=== PATIENT | female | born 1935 | race Caucasian/White ===

== ENCOUNTER 2020-04-08 10:13 | Inpatient (IN) | payer MEDICARE, OTHER ==
[~2020-04-08] VITALS: Ht 152.4 cm; Wt 55.3 kg
--- NOTE | 2020-04-08 10:13 | NUR ---
PT TAVO FROM HOME C/O GEN WEAKNESS "SHE'S NOT EATING ENOUGH" PT IS AAOX2 ESTONIAN SPEAKING ONLY, NOT IN RESPIRATORY DISTRESS, HOOKED TO LOAD DISPATCHER LOCAL, KEPT RESTED AND COMFORTABLE. WILL CONTINUE TO MONITOR.
--- NOTE | 2020-04-08 10:17 | NUR ---
SEEN AND EXAMINED BY .
--- NOTE | 2020-04-08 10:20 | NUR ---
IV LINE ESTABLISHED BLOOD DRAWN AND SENT TO LAB.
--- NOTE | 2020-04-08 10:36 | NUR ---
Judie haskins in [facility] - 04/08/20 at 1042 by MIRLANDE Christopher delgado) [phone] Krissy Suárez (daughter) [phone]
[2020-04-08 10:38] LABS: BASOPHILS # (AUTO) 0.1 /CMM (0.0-0.2); BASOPHILS % (AUTO) 1.3 % (0.0-2.0); HEMATOCRIT 38 % (33-45); HEMOGLOBIN 12.8 g/dL (11.5-14.8); LYMPHOCYTES # (AUTO) 1.3 /CMM (0.8-4.8); LYMPHOCYTES % (AUTO) 13.2 % (20.0-44.0); MEAN CORPUSCULAR HGB CONC 34 g/dl (31.0-36.0); MEAN CORPUSCULAR VOLUME 92 fL (82-100); MONOCYTES # (AUTO) 0.6 /CMM (0.1-1.30); MONOCYTES % (AUTO) 5.7 % (2.0-12.0); NEUTROPHILS # (AUTO) 7.7 /CMM (1.8-8.9); NEUTROPHILS % (AUTO) 77.8 % (43.0-81.0); PLATELET COUNT (AUTO) 388 /CMM (150-450); RED BLOOD CELL COUNT(AUTO) 4.12 MIL/uL (4.0-5.2)
[2020-04-08 11:05] LABS: ALANINE AMINOTRANSFERASE 19 U/L (12-78); ALBUMIN 3.3 g/dL (3.4-5.0); ALKALINE PHOSPHATASE 55 U/L (46-116); ASPARTATE AMINOTRANSFERASE 22 U/L (15-37); BILIRUBIN,DIRECT 0.2 mg/dL (0.0-0.2); BILIRUBIN,TOTAL 0.6 mg/dL (0.2-1.0); CARBON DIOXIDE 25 mmol/L (21-32); CHLORIDE 102 mmol/L (98-107); CREATININE 1.3 mg/dL (0.6-1.3); GLUCOSE 120 mg/dL (74-106); POTASSIUM 3.5 mmol/L (3.5-5.1); SODIUM SERUM 138 mmol/L (136-145); TOTAL PROTEIN, SERUM 8.3 g/dL (6.4-8.2)
--- NOTE | 2020-04-08 11:13 | NUR ---
Christopher (son) [phone] Krissy Suárez (daughter) [phone] CALL FOR ANY UPDATES
[2020-04-08 11:20] LABS: UREA NITROGEN, BLOOD 17 mg/dL (7-18)
--- NOTE | 2020-04-08 11:24 | NUR ---
CALLED [facility], PAGED DR. BACK
[2020-04-08] MEDS ORDERED: ONDANSETRON HCL/PF 4 MG/2 ML VIAL IVP PRN (12:00)
[2020-04-08] MEDS ORDERED: MAG HYDROX/AL HYDROX/SIMETH 30 ML UDC PO PRN (12:00)
[2020-04-08] MEDS ORDERED: Z GUARD REMEDY 2 OZ OINT TP PRN (12:00)
[2020-04-08] MEDS ORDERED: MAGNESIUM HYDROXIDE 30 ML UDC PO PRN (12:00)
[2020-04-08] MEDS ORDERED: ACETAMINOPHEN 325 MG TABLET PO PRN (12:00)
[2020-04-08] MEDS ORDERED: METF-867 PO (13:28)
[2020-04-08] MEDS ORDERED: TRAM50TA2 PO (13:28)
[2020-04-08] MEDS ORDERED: VALS40TA12 PO (13:28)
[2020-04-08] MEDS ORDERED: DEXL60CA3 PO (13:28)
[2020-04-08] MEDS: ENOXAPARIN SODIUM 30 MG/0.3 ML DISP.SYRIN SQ SCH (16:01)
[2020-04-08] MEDS ORDERED: ENOXAPARIN SODIUM 30 MG/0.3 ML DISP.SYRIN ONE (16:03)
--- NOTE | 2020-04-08 18:28 | NUR ---
ARIE, SON, CALLED ABOUT PT UPDATE
[2020-04-08] MEDS: IV NS 0.9% 1,000 ML IV PRN (21:45)
--- NOTE | 2020-04-08 22:58 | NUR ---
PT ASLEEP, NO ACUTE DISTRESS NOTED, RESP EVEN AND UNALBORED. NO PAIN OR DISCOMFORT NOTED AT THIS TIME. CALL LIGHT WITHIN REACH. WILL CONTINUE TO MONITOR PT CLOSELY.
--- NOTE | 2020-04-08 23:12 | NUR ---
ELISHA CALLED TO [facility]. WILL TRANSPORT PT VIA ACLS PROTOCOL.
--- NOTE | 2020-04-08 23:30 | NUR ---
ADMIT NOTE ADMITTED PATIENT FROM ER TO ROOM 117-1 VIA GURNEY. PATIENT IS ALERT AND ORIENTED 1-2, WITH CONFUSION. ON O2 2LPM VIA NASAL CANNULA, O2 SAT 96%. NO RESPIRATORY DISTRESS. PUT ON TELE MONITOR, NSR. HEAD TO TOE ASSESSMENT DONE, NOTED WITH SCRATCHES ON LEFT BUTTOCK AND LEFT LOWER QUADRANT ABDOMEN. WITH IV ACCESS ON RIGHT AC #18 PATENT AND FLUSHED. WITH UPPER DENTURES @ BEDSIDE. UPDATED PRIYA (DTR) OF PATIENT'S CONDITION. REQUESTED TO HOLD FLU AND PNA VACCINE AT THE TIME BEING. DTR APPRECIATED CALL. SAFETY MEASURES IMPLEMENTED. BED ALARM ON AND LOCKED AND IN LOWEST POSITION. SIDE RAILS UP X2. CALL LIGHT WITHIN REACH. WILL CONTINUE TO MONITOR.
[2020-04-09] VITALS: BP 134/76
[2020-04-09 04:00] VITALS: BP 130/69
--- NOTE | 2020-04-09 04:27 | NUR ---
PATIENT CONSISTENTLY PULLS LEADS OFF AND NASAL CANNULA. AND ATTEMPTS TO PULL OUT IV ACCESS, DESPITE HIDING LINES, FREQUENT MONITORING, AND CONSTANT REMINDERS. DR. MARTINES MADE AWARE WITH NEW ORDER FOR BILATERAL SOFT WRIST RESTRAINTS NOTED AND CARRIED OUT.
[2020-04-09 06:31] LABS: BASOPHILS % (AUTO) 0.3 % (0.0-2.0); EOSINOPHILS % (AUTO) 2.6 % (0.0-6.0); HEMATOCRIT 37 % (33-45); HEMOGLOBIN 12.3 g/dL (11.5-14.8); LYMPHOCYTES # (AUTO) 1.6 /CMM (0.8-4.8); LYMPHOCYTES % (AUTO) 17.3 % (20.0-44.0); MEAN CORPUSCULAR HGB CONC 33 g/dl (31.0-36.0); MEAN CORPUSCULAR VOLUME 92 fL (82-100); MONOCYTES # (AUTO) 0.6 /CMM (0.1-1.30); MONOCYTES % (AUTO) 6.6 % (2.0-12.0); NEUTROPHILS # (AUTO) 6.9 /CMM (1.8-8.9); NEUTROPHILS % (AUTO) 73.2 % (43.0-81.0); PLATELET COUNT (AUTO) 409 /CMM (150-450); RED BLOOD CELL COUNT(AUTO) 3.98 MIL/uL (4.0-5.2); WHITE BLOOD COUNT (AUTO) 9.5 K/uL (4.3-11.0)
--- NOTE | 2020-04-09 06:48 | NUR ---
RN NOTES PATIENT IS A/O X 1-2, WITH CONFUSION. ON O2 2LPM VIA NASAL CANNULA, O2 SAT 94%. NO RESPIRATORY DISTRESS. TELE MONITOR ON, NSR. IV ACCESS ON RIGHT HAND #22 WITH NS @ 50ML/HR RUNNING. WITH UPPER DENTURES @ BEDSIDE. BILATERAL SOFT WRISTS RESTRAINTS ON, NO SKIN BREAKDOWN NOTED, CIRCULATION CHECKED. SAFETY MEASURES IMPLEMENTED. BED ALARM ON AND LOCKED AND IN LOWEST POSITION. SIDE RAILS UP X2. CALL LIGHT WITHIN REACH. WILL ENDORSED TO NEXT SHIFT.
[2020-04-09 07:18] LABS: THYROID STIMULATING HORMONE 2.508 uIU/mL (0.358-3.74)
--- NOTE | 2020-04-09 07:30 | NUR ---
PT RECEIVED IN BED ON 2L O2 SAT 100%, NO SOB. PT ON BILATERAL SOFT WRIST RESTRAINTS ORDERED. PT ON MONITOR SHOWING SR 90s. PT IS BEDREST. PT CARDIAC DIET, TO HAVE ST EVAL LATER. PT IV SITES INTACT AND FLUSHED WELL. NS INFUSING AT 50 ML/HR. ALL SAFETY MEASURES IN PLACE. WILL CONTINUE TO MONITOR CLOSELY
[2020-04-09 07:47] LABS: CALCIUM, SERUM 9.3 mg/dL (8.5-10.1); CREATININE 1.1 mg/dL (0.6-1.3); MAGNESIUM 2.2 mg/dL (1.8-2.4); PHOSPHORUS 3.6 mg/dL (2.5-4.9); POTASSIUM 3.5 mmol/L (3.5-5.1)
[2020-04-09 08:47] VITALS: BP 139/56
--- NOTE | 2020-04-09 09:26 | NUR ---
WOUND CARE CONSULT: REVIEWED CHART, NURSING DOCUMENTATION AND PHOTOS WHICH INDICATE SOME SCRATCH HOLLINS ON SKIN, PRESENT ON ADMISSION. CURRENT CYDNEY SCORE IS 14. RECOMENDATIONS MADE FOR SKIN PROTECTION. DISCUSSED WITH NURSING STAFF. IN AGREEMENT WITH PLAN OF CARE. Addendum: 04/09/20 at 0931 by TWIN MCKEON WNDNU PT [facility].
[2020-04-09] MEDS: PANTOPRAZOLE 40 MG TABLET.DR PO SCH (10:27)
[2020-04-09 12:37] VITALS: BP 153/68
[2020-04-09] MEDS: ENOXAPARIN SODIUM 30 MG/0.3 ML DISP.SYRIN SQ SCH (18:35)
[2020-04-09 19:30] VITALS: BP 153/68
--- NOTE | 2020-04-09 19:30 | NUR ---
RN NOTES RECEIVED PATIENT IN BED A0X1-2 WITH PERIODS OF CONFUSION. BREATHING NORMAL NO SOB NOTED. CONTINUES ON 2LOXYGEN VIA NC SATING 98-100% AT THIS TIME. TELE MONITOR READING SR IN 80'S. IV SITES INTACT PATENT FLUSHES WELL. BILATERAL SOFT WRIST RESTRAINS IN PLACE NO S/S OF SKIN BREAKDOWN NOTED. RELEASED Q2H TO CHECK CIRCULATION AND SKIN BREAKDOWN. ALL SAFETY MEASURES IN PLACE, CALL LIGHT WITHIN REACH. SIDE RAILS UPX2. WILL CONTINUES TO MONITOR FOR [facility].
--- NOTE | 2020-04-09 19:30 | NUR ---
PT REMAINS IN BED, ALERT AND ORIENTED X 1/2 IRANIAN SPEAKING WITH CONFUSION. PT ON 2L BUT ABLE TO TOLERATE ROOM AIR; PT [facility] PT ON MONITOR SHOWING SR 90s. PT REMAINS BEDREST. BILATERAL SOFT WRIST RESTRAINTS PLACED ORDERED. ALL NEEDS ENDORSED TO [facility] FOR [facility]. ALL SAFETY MEASURES IN PLACE.
[2020-04-09 20:00] VITALS: BP 134/77
--- NOTE | 2020-04-09 22:55 | NUR ---
2255 COVID PCR RESULT POSITIVE REPORTED TO ANUP MAY WITH NO ORDER MADE.
[2020-04-10] VITALS: BP 155/78
[2020-04-10 04:00] VITALS: BP 150/72
[2020-04-10] MEDS: IV NS 0.9% 1,000 ML IV PRN (06:00)
--- NOTE | 2020-04-10 07:05 | NUR ---
RN NOTES NO CHANGES NOTED DURING SHIFT. VITAL SIGNS REMAINED STABLE. NO SOB NOTED RESPIRATION EVEN NON LABORED. IV SITES INTACT PATENT FLUSHES WELL. KEPT CLEAN DRY AND COMFORTABLE. ALL SAFETY MEASURES IN PLACE, CALL LIGHT WITHIN REACH. SIDE RAILS UPX2. WILL ENDORSE TO AM NURSE FOR [facility].
--- NOTE | 2020-04-10 07:15 | NUR ---
RN OPENING NOTES PATIENT RECIEVED IN BED SEMI-FOWLERS, RESTING COMFORTABLY, A&0X1-2, CONFUSED, SPANISH SPEAKING. PATIENT IS ON O2 THERAPY VIA NC AT 2 LPM, TOLERATING O2 THERAPY WELL. TELE READING NSR. NO DISTRESS NOTED AT THIS TIME. LEFT HAND #18 G AND RAC #18 G INTACT AND PATENT. NS RUNNING VIA RAC AT 50 ML/HR. ISOLATION PRECAUTIONS MAINTAINED. SAFETY PRECAUTIONS IMPLEMENTED WITH BED LOCKED IN LOWEST POSITION, SIDE RAILS UP X2, AND CALL LIGHT WITHIN REACH. WILL CONTINUE TO MONITOR AND PROVIDE CARE THROUGHOUT SHIFT.
[2020-04-10 08:16] VITALS: BP 120/60
[2020-04-10] MEDS: PANTOPRAZOLE 40 MG TABLET.DR PO SCH (09:53)
[2020-04-10 12:49] VITALS: BP 143/7
[2020-04-10 16:28] VITALS: BP 121/71
[2020-04-10] MEDS: ENOXAPARIN SODIUM 30 MG/0.3 ML DISP.SYRIN SQ SCH (17:57)
--- NOTE | 2020-04-10 18:53 | NUR ---
RN CLOSING NOTES PATIENT IN BED SEMI-FOWLERS, RESTING COMFORTABLY, A&0X1-2, CONFUSED, UZBEK SPEAKING. PATIENT IS ON O2 THERAPY VIA NC AT 2 LPM, TOLERATING O2 THERAPY WELL. TELE READING NSR 80'S. NO DISTRESS NOTED AT THIS TIME. LEFT HAND #18 G AND RAC #18 G INTACT AND PATENT. NS RUNNING VIA RAC AT 50 ML/HR. ISOLATION PRECAUTIONS MAINTAINED. RESTRAINTS IN PLACE. POSITIVE CIRCULATION, SENSATION, AND MOVEMENT NOTED IN BILATERAL UPPER EXTREMITIES. SAFETY PRECAUTIONS IMPLEMENTED WITH BED LOCKED IN LOWEST POSITION, SIDE RAILS UP X2, AND CALL LIGHT WITHIN REACH. WILL CONTINUE ENDORSE CARE TO UPCOMING SHIFT.
--- NOTE | 2020-04-10 19:35 | NUR ---
RN NOTES RECEIVED PT IN BED. GREENLANDIC SPEAKING. ON O2 VIA NC AT 2LPM. SATING AT 98 . NOT IN ANY ACUTE DISTRESS. TELE MONITOR SHOWS SR HR 83. PT WITH BILATERAL SOFT WRIST RESTRAINTS, CIRCULATION AND SKIN CHECKED. PT ABLE TO MOVE HANDS. WITH RAC # 18 NS RUNNING AT 50 ML/HR. NO SIGNS OF INFILTRATION. FLUSHED. IV PATENT AND INTACT. ALL SAFETY MEASURES IMPLEMENTED PER PROTOCOL. CALL LIGHT WITHIN REACH. BED LOCKED IN LOWEST POSITION. SIDE RAILS UP X 2. BED ALARM ON. ISOLATION PRECAUTION FOR COVID OBSERVED.
[2020-04-10 20:00] VITALS: BP 158/97
--- NOTE | 2020-04-10 20:30 | NUR ---
RN NOTE NOTED PTS IV LINE ON R AC LEAKING. CHARGE NURSE INSERTED NEW IV LINE ON LEFT FA G 20. STARTED IVF NS ON LFA. NO SIGNS OF INFILTRATION. NO SIGNS OF PAIN NOR DISCOMFORT.
--- NOTE | 2020-04-10 23:00 | NUR ---
RN NOTE SPOKE TO PTS DAUGHTER RIGOBERTO. WAS ABLE TO TALK TO HER MOM WELL. PER DAUGHTER PT IS CONFUSED PTS BASELINE. ALSO NOTIFIED DAUGHTER REGARDING RESTRAINTS. VERBALIZES UNDERSTANDING.
[2020-04-11] VITALS (7 sets, daily range): BP systolic 130–152; BP diastolic 50–89
--- NOTE | 2020-04-11 06:42 | NUR ---
RN NOTES PT REMAINS IN BED. TOLERATING O2 THERAPY OF 2 LPM. NO SIGNS OF DISTRESS O2 SAT AT 98 %. TELE SHOWS NSR HR 79. STILL ON BILATERAL SOFT RESTRAINTS DUE TO PT REMOVING O2 TUBINGS. NO SKIN BREAKDOWN NOTED WITH GOOD CIRCULATION NO SIGNS OF PAIN.ON FREQUENT VISUAL CHECK. NS RUNNING T 50 ML/HR. NO SIGNS OF INFILTRATION. ISOLATION PRECAUTION MAINTAINED. BED LOCKED IN LOWEST POSITION. CALL LIGHT WITHIN REACH. SIDE RAILS UP X 3.
--- NOTE | 2020-04-11 08:00 | NUR ---
GEOGRAPHIC INFORMATION SYSTEM SURVEYOR NOTES PT REMAINS IN BED. ALERT WITH CONFUSION ON SOFT RESTRAIN OK WITH SON TOLERATING O2 THERAPY OF 3 LPM. SATUARTION 95%NO SIGNS OF DISTRESS O2 SAT AT 98 %. TELE SHOWS NSR HR 79. STILL ON BILATERAL SOFT RESTRAINTS DUE TO PT REMOVING O2 TUBINGS. NO SKIN BREAKDOWN NOTED WITH GOOD CIRCULATION NO SIGNS OF PAIN.ON FREQUENT VISUAL CHECK. NS RUNNING T 50 ML/HR. NO SIGNS OF INFILTRATION. ISOLATION PRECAUTION MAINTAINED. BED LOCKED IN LOWEST POSITION. CALL LIGHT WITHIN REACH. SIDE RAILS UP X 3. LFA HL INTACT AND FLUSHED WELL , ON IVF ORDERED BRANDY SUAZO DNP AT BEDSIDE UPDATED PATIENT CONDITION
[2020-04-11] MEDS: PANTOPRAZOLE 40 MG TABLET.DR PO SCH (08:22)
--- NOTE | 2020-04-11 10:38 | NUR ---
MOVIE SHOT CAMERA OPERATOR NOTE PT AT BEDSIDE ROSHAN TO STAND UP WITH MAX ASSISTANCE, WILL MONITOR
--- NOTE | 2020-04-11 11:11 | NUR ---
television news anchor note very agitated and Trying to get out off bed and remove all line ,called to dr marbin Myles with order give Zyprexa time one, order carried out
[2020-04-11] MEDS ORDERED: OLANZAPINE 10 MG VIAL IM ONE (11:30)
[2020-04-11] MEDS: IV NS 0.9% 1,000 ML IV PRN (12:14)
--- NOTE | 2020-04-11 13:17 | NUR ---
television inspector note agitated and trying to remove all lines and get out off bed Zyprexa 5 mg im given as ordered ,will cont to monitor
--- NOTE | 2020-04-11 15:00 | NUR ---
television news producer note unable to remove soft restrain, patient still at risk for fall and remove all lines , will monitor
--- NOTE | 2020-04-11 16:00 | NUR ---
television repairman note resting comfortably after given Zyprexa, will cont to monitor
[2020-04-11] MEDS: ENOXAPARIN SODIUM 30 MG/0.3 ML DISP.SYRIN SQ SCH (17:21)
--- NOTE | 2020-04-11 18:44 | NUR ---
RN CLOSING NOTES PATIENT IN BED SEMI-FOWLERS, RESTING COMFORTABLY, A&0X1-2, CONFUSED, MALIAN SPEAKING. PATIENT IS NO LONGER ON 02 THERAPY AND TOLERATING ROOM AIR WELL. NO DISTRESS NOTED AT THIS TIME. LEFT HAND #18 G INTACT AND PATENT. NS RUNNING VIA RAC AT 50 ML/HR. ISOLATION PRECAUTIONS MAINTAINED. RESTRAINTS IN PLACE. POSITIVE CIRCULATION, SENSATION, AND MOVEMENT NOTED IN BILATERAL UPPER EXTREMITIES. SAFETY PRECAUTIONS IMPLEMENTED WITH BED LOCKED IN LOWEST POSITION, SIDE RAILS UP X2, AND CALL LIGHT WITHIN REACH. WILL ENDORSE CARE TO UPCOMING SHIFT.
--- NOTE | 2020-04-11 19:15 | NUR ---
MACHINIST LINOTYPE NOTES PATIENT IN BED, AWAKE, ALERT AND ORIENTED X 1. BREATHING EVEN AND UNLABORED ON 3L NC. SHOWS NO SIGNS OF ACUTE RESPIRATORY DISTRESS. NO ACUTE PAIN. TELE MONITOR SR. IV ON LAC22G RUNNING NS AT 75ML/HR. SHOWS NO SIGNS OF INFILTRATION, NO REDNESS. BILATERAL WRIST RESTRAINTS IN PLACE. SHOWS NO S/S OF POOR CIRCULATION. NO NEW SKIN BREAKDOWN. SAFETY PRECAUTIONS IN PLACE. BED IN LOWEST POSITION, LOCKED, AND CALL LIGHT KEPT WITHIN REACH. WILL CONTINUE TO MONITOR.
[2020-04-12] VITALS (7 sets, daily range): BP systolic 117–171; BP diastolic 43–134
[2020-04-12] MEDS: IV NS 0.9% 1,000 ML IV PRN ×2 (01:44→20:01)
[2020-04-12] MEDS ORDERED: OLANZAPINE 10 MG VIAL IM ONE ×2 (02:00→02:19)
--- NOTE | 2020-04-12 02:30 | NUR ---
INSTITUTION LIBRARIAN NOTES PATIENT AGITATED, YELLING, AND KICKING LEGS OVER RAILINGS. MD ORDER IM ZYPREXA. GIVEN IM ZYPREXA. VITAL SIGNS WNL. WILL CONTINUE TO MONITOR.
[2020-04-12 06:33] LABS: BASOPHILS % (AUTO) 0.4 % (0.0-2.0); EOSINOPHILS % (AUTO) 3.1 % (0.0-6.0); HEMATOCRIT 38 % (33-45); HEMOGLOBIN 12.7 g/dL (11.5-14.8); LYMPHOCYTES # (AUTO) 2.1 /CMM (0.8-4.8); LYMPHOCYTES % (AUTO) 21.4 % (20.0-44.0); MEAN CORPUSCULAR HGB CONC 33 g/dl (31.0-36.0); MEAN CORPUSCULAR VOLUME 92 fL (82-100); MONOCYTES # (AUTO) 0.6 /CMM (0.1-1.30); MONOCYTES % (AUTO) 5.8 % (2.0-12.0); NEUTROPHILS # (AUTO) 6.7 /CMM (1.8-8.9); NEUTROPHILS % (AUTO) 69.3 % (43.0-81.0); PLATELET COUNT (AUTO) 567 /CMM (150-450); RED BLOOD CELL COUNT(AUTO) 4.13 MIL/uL (4.0-5.2); WHITE BLOOD COUNT (AUTO) 9.7 K/uL (4.3-11.0)
--- NOTE | 2020-04-12 06:35 | NUR ---
PICKLER HELPER NOTES PATIENT IN BED, ASLEEP, ALERT AND ORIENTED X 1. BREATHING EVEN AND UNLABORED ON 3L NC. SHOWS NO SIGNS OF ACUTE RESPIRATORY DISTRESS. NO ACUTE PAIN. TELE MONITOR SR. IV ON LAC 22G RUNNING NS AT 50ML/HR. SHOWS NO SIGNS OF INFILTRATION, NO REDNESS. BILATERAL WRIST RESTRAINTS IN PLACE. SHOWS NO S/S OF POOR CIRCULATION. NO NEW SKIN BREAKDOWN. ALL DUE MEDICATIONS GIVEN. ALL NEEDS ATTENDED TO. SAFETY PRECAUTIONS IN PLACE. BED IN LOWEST POSITION, LOCKED, AND CALL LIGHT KEPT WITHIN REACH. WILL ENDORSE TO ONCOMING NURSE.
[2020-04-12 07:16] LABS: CALCIUM, SERUM 8.9 mg/dL (8.5-10.1); CREATININE 0.9 mg/dL (0.6-1.3); MAGNESIUM 1.8 mg/dL (1.8-2.4); PHOSPHORUS 3.1 mg/dL (2.5-4.9); POTASSIUM 3.4 mmol/L (3.5-5.1)
--- NOTE | 2020-04-12 07:30 | NUR ---
RN TELE1 PATIENT IN BED, NO S/S OF DISTRESS, A/O X1, CROATIAN SPEAKING, USED STAFF TO TRANSLATE,TELE MONITOR IN PLACE SINUS RHYTHM, DIAPER, SOFT WRIST RESTRAINTS IN PLACE NO S/S OF DISTRESS OR WRIST IRRITATION/ INJURY, CARDIAC DIET, L AC 22G, NS RUNNING 50ML/HR, IV INTACT CLEAN DRY FLUSHING WELL, BED IN LOWEST LOCKED POSITION, CALL LIGHT WITHIN REACH, SAFETY MEASURES IN PLACE, WILL CONTINUE TO MONITOR.
[2020-04-12] MEDS: PANTOPRAZOLE 40 MG TABLET.DR PO SCH (09:10)
[2020-04-12] MEDS ORDERED: POTASSIUM CHLORIDE 20 MEQ TAB.PRT.SR PO SCH ×2 (11:00→13:00)
--- NOTE | 2020-04-12 13:00 | NUR ---
RN TELE1 PATIENT SLEEPING MOST OF THE DAY, EDUCATED IN NEED TO WAKE UP DURING THE DAY, OPENED CURTAINS, TURNED ON LIGHTS, TURNED ON TV IN ATTEMPTS TO STIMULATE THE PATIENT.
--- NOTE | 2020-04-12 14:00 | NUR ---
RN TELE1 ASKED BRANDY PAGAN TO RENEW THE RESTRAINTS HE SAID HE WILL DO IT NOW.
[2020-04-12] MEDS: ENOXAPARIN SODIUM 30 MG/0.3 ML DISP.SYRIN SQ SCH (17:18)
--- NOTE | 2020-04-12 19:15 | NUR ---
RN TELE1 PATIENT IN BED, NO S/S OF DISTRESS, A/O X1, ON ROOM AIR, O2 SAT 96%, STATELESS SPEAKING, USED STAFF TO TRANSLATE,TELE MONITOR IN PLACE SINUS RHYTHM, DIAPER, SOFT WRIST RESTRAINTS IN PLACE NO S/S OF DISTRESS OR WRIST IRRITATION/ INJURY, CARDIAC DIET, L AC 22G, NS RUNNING 50ML/HR, IV INTACT CLEAN DRY FLUSHING WELL, BED IN LOWEST LOCKED POSITION, CALL LIGHT WITHIN REACH, SAFETY MEASURES IN PLACE, WILL CONTINUE TO MONITOR.
--- NOTE | 2020-04-12 19:30 | NUR ---
RN OPENING NOTES: RECEIVED PT A/OX1 IN BED SLEEPING COMFORTABLY. PATIENT IN NO S/SX OF ACUTE DISTRESS AT THIS TIME. NO SOB NOTED. PATIENT'S BREATHING IS EVEN AND UNLABORED. PATIENT IS ON RA ; TOLERATING WELL AND SATING @95% AT THE TIME OF RECEIVED. PATIENT ON TELE MONITORING READING SINUS TACHY HR IS @100s AT THE TIME OF RECEIVED. PATIENT ON CARDIAC DIET; TOLERATES WELL. NOTED IV SITE ON L AC# 22; PATENT, INTACT AND FLUSHING WELL; NO S/S OF INFECTION OR INFILTRATION. WITH IV FLUID RUNNING ORDERED.BILATERAL SOFT WRIST RESTRAINTS IN PLACE, ASSESSED PER PROTOCOL.SAFETY MEASURES HAVE BEEN PROVIDED AND IMPLEMENTED. PATIENT BED ALARM IS ON. HEAD OF BED ELEVATED. BED IS LOCKED, IN LOWEST POSITION AND SIDE RAILS UP. CALL LIGHT WITHIN REACH OF THE PATIENT. APPLICABLE ISOLATION PRECAUTIONS IN PLACE. WILL CONTINUE TO MONITOR AND REASSESS FOR ANY CHANGES AND WILL CARRY OUT ANY ONGOING AND ACTIVE MD ORDER.
--- NOTE | 2020-04-12 23:00 | NUR ---
RN NOTES PATIENT REMAINS IN NO ACUTE RESPIRATORY DISTRESS AT THIS TIME, NO CHANGES TO CONDITION/STATUS. PREPARER MAKING DEPARTMENT WELL AWARE. WILL CONTINUE TO MONITOR AND REASSESS FOR ANY CHANGES THROUGHOUT THE SHIFT
[2020-04-13] VITALS: BP 134/79
--- NOTE | 2020-04-13 03:30 | NUR ---
RN NOTES NO CHANGE IN PATIENT CONDITION AT THIS TIME PATIENT VITALS STABLE, NO SIGNS OF ACUTE RESPIRATORY DISTRESS. BACTERIOLOGIST PHARMACEUTICAL MADE AWARE. WILL CONTINUE TO MONITOR AND REASSESS FOR ANY CHANGES THROUGHOUT THE SHIFT.
[2020-04-13 04:00] VITALS: BP 131/68
[2020-04-13 06:47] LABS: BASOPHILS # (AUTO) 0.1 /CMM (0.0-0.2); BASOPHILS % (AUTO) 0.7 % (0.0-2.0); EOSINOPHILS % (AUTO) 2.1 % (0.0-6.0); HEMATOCRIT 34 % (33-45); HEMOGLOBIN 11.3 g/dL (11.5-14.8); LYMPHOCYTES # (AUTO) 2.4 /CMM (0.8-4.8); LYMPHOCYTES % (AUTO) 27.4 % (20.0-44.0); MEAN CORPUSCULAR HGB CONC 33 g/dl (31.0-36.0); MEAN CORPUSCULAR VOLUME 93 fL (82-100); MONOCYTES # (AUTO) 0.6 /CMM (0.1-1.30); MONOCYTES % (AUTO) 7.1 % (2.0-12.0); NEUTROPHILS # (AUTO) 5.5 /CMM (1.8-8.9); NEUTROPHILS % (AUTO) 62.7 % (43.0-81.0); PLATELET COUNT (AUTO) 522 /CMM (150-450); RED BLOOD CELL COUNT(AUTO) 3.64 MIL/uL (4.0-5.2); WHITE BLOOD COUNT (AUTO) 8.8 K/uL (4.3-11.0)
--- NOTE | 2020-04-13 06:51 | NUR ---
RN CLOSING NOTE: PATIENT REMAINS IN ROOM IN NO SIGNS OF RESPIRATORY DISTRESS. SAFETY MEASURES IMPLEMENTED, BED IN LOWEST POSITION, LOCKED, SIDE RAILS UP, CALL LIGHT WITHIN REACH. ALL NEEDS AND ORDERS ADDRESSED DURING THE SHIFT. IV ACCESS MAINTAINED INTACT, SECURED AND FLUSHING WELL. ALL DUE MEDS GIVEN ORDERED & SCHEDULED ; PATIENT TOLERATED WELL. PATIENT KEPT CLEAN AND COMFORTABLE WITHIN THE SHIFT. PATIENT ENDORSED TO INCOMING SHIFT RN WITH STABLE VITAL SIGN AND FOR CONTINUITY OF CARE.
[2020-04-13 07:07] LABS: CALCIUM, SERUM 8.8 mg/dL (8.5-10.1); MAGNESIUM 1.9 mg/dL (1.8-2.4); PHOSPHORUS 3.7 mg/dL (2.5-4.9); POTASSIUM 3.4 mmol/L (3.5-5.1)
[2020-04-13] MEDS: PANTOPRAZOLE 40 MG TABLET.DR PO SCH (07:30)
--- NOTE | 2020-04-13 07:30 | NUR ---
PATIENT IN BED, AGITATED. REFUSING ORAL MEDICATIONS.
--- NOTE | 2020-04-13 07:30 | NUR ---
RN OPENING NOTES: RECEIVED PT A/OX1 IN BED SLEEPING COMFORTABLY. PATIENT IN NO S/SX OF ACUTE DISTRESS AT THIS TIME. NO SOB NOTED. PATIENT'S BREATHING IS EVEN AND UNLABORED. PATIENT IS ON RA ; TOLERATING WELL AND SATING @96% AT THE TIME OF RECEIVED. PATIENT ON TELE MONITORING READING SINUS RHYTHM AT THE TIME OF RECEIVED. PATIENT ON CARDIAC DIET; TOLERATES WELL. NOTED IV SITE ON L AC# 22; PATENT, INTACT AND FLUSHING WELL; NO S/S OF INFECTION OR INFILTRATION. WITH IV FLUID RUNNING 0.9% NS @ 50ML/HR. BILATERAL SOFT WRIST RESTRAINTS IN PLACE, ASSESSED PER PROTOCOL. SAFETY MEASURES HAVE BEEN PROVIDED AND IMPLEMENTED. PATIENT BED ALARM IS ON. HEAD OF BED ELEVATED. BED IS LOCKED, IN LOWEST POSITION AND SIDE RAILS UP. CALL LIGHT WITHIN REACH OF THE PATIENT. APPLICABLE ISOLATION PRECAUTIONS IN PLACE. WILL CONTINUE TO MONITOR AND PROVIDE TREATMENT.
[2020-04-13 08:00] VITALS: BP_SYST 123; BP_SYST 129; BP_DIAS 60; BP_DIAS 68
[2020-04-13] MEDS ORDERED: POTASSIUM CHLORIDE 20 MEQ TAB.PRT.SR PO SCH (10:00)
[2020-04-13] MEDS: POTASSIUM CL. PREMIX PERIPHER. 50 ML IV SCH ×2 (10:24→11:34)
[2020-04-13 12:00] VITALS: BP 123/68
[2020-04-13] MEDS: IV NS 0.9% 1,000 ML IV PRN (15:26)
[2020-04-13 16:00] VITALS: BP 143/82
[2020-04-13] MEDS: ENOXAPARIN SODIUM 30 MG/0.3 ML DISP.SYRIN SQ SCH (17:16)
--- NOTE | 2020-04-13 18:50 | NUR ---
RN CLOSING NOTES: RECEIVED PT A/OX1 IN BED, AGITATED. PATIENT IN NO S/SX OF ACUTE DISTRESS AT THIS TIME. NO SOB NOTED. PATIENT'S BREATHING IS EVEN AND UNLABORED. PATIENT IS ON RA ; TOLERATING WELL AND SATING @97% AT THE TIME OF RECEIVED. PATIENT ON TELE MONITORING READING SINUS RHYTHM AT THE TIME OF RECEIVED. PATIENT ON CARDIAC DIET; TOLERATES WELL. NOTED IV SITE ON L AC# 22; PATENT, INTACT AND FLUSHING WELL; NO S/S OF INFECTION OR INFILTRATION. WITH IV FLUID RUNNING 0.9% NS @ 50ML/HR. BILATERAL SOFT WRIST RESTRAINTS IN PLACE, ASSESSED PER PROTOCOL. PATIENT CONTINUES TO TRY TO PULL OUT IV AND GET OUT OF BED UPON TRIALS TO REMOVE RESTRAINTS. SAFETY MEASURES HAVE BEEN PROVIDED AND IMPLEMENTED. PATIENT BED ALARM IS ON. HEAD OF BED ELEVATED. BED IS LOCKED, IN LOWEST POSITION AND SIDE RAILS UP. CALL LIGHT WITHIN REACH OF THE PATIENT. APPLICABLE ISOLATION PRECAUTIONS IN PLACE. WILL ENDORSE TO [employer]FT F[employer] FRAMER NURSE FOR [facility].
--- NOTE | 2020-04-13 19:30 | NUR ---
RN OPENING NOTES: RECEIVED PT A/OX1 IN BED SLEEPING COMFORTABLY. PATIENT IN NO S/SX OF ACUTE DISTRESS AT THIS TIME. NO SOB NOTED. PATIENT'S BREATHING IS EVEN AND UNLABORED. PATIENT IS ON RA ; TOLERATING WELL AND SATING @95% AT THE TIME OF RECEIVED. PATIENT ON TELE MONITORING READING SINUS RHYTHM AT 70s THE TIME OF RECEIVED. PATIENT ON CARDIAC DIET; TOLERATES WELL. NOTED IV SITE ON L AC# 22; PATENT, INTACT AND FLUSHING WELL; NO S/S OF INFECTION OR INFILTRATION. WITH IV FLUID RUNNING ORDERED.BILATERAL SOFT WRIST RESTRAINTS IN PLACE, ASSESSED PER PROTOCOL.SAFETY MEASURES HAVE BEEN PROVIDED AND IMPLEMENTED. PATIENT BED ALARM IS ON. HEAD OF BED ELEVATED. BED IS LOCKED, IN LOWEST POSITION AND SIDE RAILS UP. CALL LIGHT WITHIN REACH OF THE PATIENT. APPLICABLE ISOLATION PRECAUTIONS IN PLACE. WILL CONTINUE TO MONITOR AND REASSESS FOR ANY CHANGES AND WILL CARRY OUT ANY ONGOING AND ACTIVE MD ORDER.
[2020-04-13 20:00] VITALS: BP 136/71
[2020-04-13] MEDS ORDERED: LORAZEPAM INJ 2 MG/ML VIAL IV PRN (21:00)
--- NOTE | 2020-04-13 21:20 | NUR ---
RN NOTES PATIENT'S FAMILY CALLED TO GET UPDATES. SPOKE WITH PRIYA ([phone]), PROVIDED GENERAL UPDATES ABOUT PT'S CONDITION. ADVISED PT'S RELATIVE TO CALLBACK IN THE MORNING TO TALK TO MD FOR MORE SPECIFIC INFO ABOUT TREATMENT PLAN. ASSURED PATIENT RELATIVE THAT WILL KEEP THEM POSTED FOR ANY SUDDEN CHANGES TO PT'S CONDITION. FAMILY VERY THANKFUL ABOUT CARE BEING PROVIDED TO THE PATIENT. RN ACKNOWLEDGED.
--- NOTE | 2020-04-13 23:00 | NUR ---
RN NOTES PATIENT REMAINS IN NO ACUTE RESPIRATORY DISTRESS AT THIS TIME, NO CHANGES TO CONDITION/STATUS. FOUNDER AND CHIEF TECHNICAL OFFICER WELL AWARE. WILL CONTINUE TO MONITOR AND REASSESS FOR ANY CHANGES THROUGHOUT THE SHIFT
--- NOTE | 2020-04-13 23:00 | NUR ---
RN OPENING NOTES: RECEIVED PT A/OX1 IN BED SLEEPING COMFORTABLY. PATIENT IN NO S/SX OF ACUTE DISTRESS AT THIS TIME. NO SOB NOTED. PATIENT'S BREATHING IS EVEN AND UNLABORED. PATIENT IS ON RA ; TOLERATING WELL AND SATING @95% AT THE TIME OF RECEIVED. PATIENT ON TELE MONITORING READING SINUS RHYTHM AT 70s THE TIME OF RECEIVED. PATIENT ON CARDIAC DIET; TOLERATES WELL. NOTED IV SITE ON L AC# 22; PATENT, INTACT AND FLUSHING WELL; NO S/S OF INFECTION OR INFILTRATION. WITH IV FLUID RUNNING ORDERED.BILATERAL SOFT WRIST RESTRAINTS IN PLACE, ASSESSED PER PROTOCOL.SAFETY MEASURES HAVE BEEN PROVIDED AND IMPLEMENTED. PATIENT BED ALARM IS ON. HEAD OF BED ELEVATED. BED IS LOCKED, IN LOWEST POSITION AND SIDE RAILS UP. CALL LIGHT WITHIN REACH OF THE PATIENT. APPLICABLE ISOLATION PRECAUTIONS IN PLACE. WILL CONTINUE TO MONITOR AND REASSESS FOR ANY CHANGES AND WILL CARRY OUT ANY ONGOING AND ACTIVE MD ORDER. Addendum: 04/14/20 at 0024 by AMY MCCOY RN pls disregard wrong time entry
[2020-04-14] VITALS: BP 122/97
--- NOTE | 2020-04-14 03:00 | NUR ---
RN NOTES NO CHANGE IN PATIENT CONDITION AT THIS TIME PATIENT VITALS STABLE, NO SIGNS OF ACUTE RESPIRATORY DISTRESS. FACE PAINTER MADE AWARE. WILL CONTINUE TO MONITOR AND REASSESS FOR ANY CHANGES THROUGHOUT THE SHIFT.
[2020-04-14 04:00] VITALS: BP_SYST 150; BP_SYST 158; BP_DIAS 90
--- NOTE | 2020-04-14 04:30 | NUR ---
RN NOTES NOTED IV LINE ON L AC HAVE BEEN REMOVED BY PATIENT. FACILITATED REINSERTION OF IV LINE ACCESS @ R AC #22. SNOW GROOMER MADE AWARE. WILL CONTINUE TO MONITOR AND ASSESS THROUGHOUT THE SHIFT.
[2020-04-14 07:00] LABS: BASOPHILS # (AUTO) 0.1 /CMM (0.0-0.2); BASOPHILS % (AUTO) 0.9 % (0.0-2.0); EOSINOPHILS % (AUTO) 2.3 % (0.0-6.0); HEMATOCRIT 40 % (33-45); HEMOGLOBIN 13.1 g/dL (11.5-14.8); LYMPHOCYTES # (AUTO) 2.9 /CMM (0.8-4.8); LYMPHOCYTES % (AUTO) 27.8 % (20.0-44.0); MEAN CORPUSCULAR HGB CONC 33 g/dl (31.0-36.0); MEAN CORPUSCULAR VOLUME 96 fL (82-100); MONOCYTES # (AUTO) 0.7 /CMM (0.1-1.30); MONOCYTES % (AUTO) 6.7 % (2.0-12.0); NEUTROPHILS # (AUTO) 6.5 /CMM (1.8-8.9); NEUTROPHILS % (AUTO) 62.3 % (43.0-81.0); PLATELET COUNT (AUTO) 432 /CMM (150-450); WHITE BLOOD COUNT (AUTO) 10.4 K/uL (4.3-11.0)
[2020-04-14 07:36] LABS: CALCIUM, SERUM 9.2 mg/dL (8.5-10.1); MAGNESIUM 1.9 mg/dL (1.8-2.4); PHOSPHORUS 3.3 mg/dL (2.5-4.9); POTASSIUM 3.8 mmol/L (3.5-5.1)
--- NOTE | 2020-04-14 07:56 | NUR ---
PT RECEIVED IN BED ON ROOM AIR, O2 SAT 100%. NO RESPIRATORY DISTRESS. PT IS AOX1 VERY CONFUSED AND JAPANESE SPEAKING. PT BEDBOUND WITH BILATERAL SOFT WRIST RESTRAINTS ORDERED. PT CARDIAC DIET WITH RAC #22 RUNNING NS AT 50 ML/HR. NO SIGNS OF INFECTION OR INFILTRATION. ALL SAFETY MEASURES IN PLACE. WILL CONTINUE TO MONITOR CLOSELY
[2020-04-14 08:00] VITALS: BP 144/96
[2020-04-14] MEDS: PANTOPRAZOLE 40 MG TABLET.DR PO SCH (09:12)
[2020-04-14] MEDS ORDERED: ENSURE ENLIVE 237 ML LIQUID (VANILLA) PO SCH (11:00)
[2020-04-14 12:00] VITALS: BP 102/39
--- NOTE | 2020-04-14 15:55 | NUR ---
REPORT GIVEN TO KALEIGH AT [facility] EMS PRIVACY ANALYST SCHEDULED FOR [id number]
[2020-04-14 16:00] VITALS: BP 117/54
--- NOTE | 2020-04-14 16:53 | NUR ---
REPORT GIVEN AT BEDSIDE TO EMS FOR TRANSPORTING PT TO [facility]. LAST SET OF VITALS TEMP 96.7, PULSE 75, RESP 20, O2 SAT 98%, BP 117/54. DISCHARGE PAPERWORK PROVIDED TO EMS. PT ON ROOM AIR. ID BAND REMOVED, IV SITE REMOVED, PT BELONGINGS CHECKED AT LEFT WITH PATIENT. TELE MONITOR REMOVED AND PT CLEANED PRIOR TO TRANSFER
== END 2020-04-14 16:45 | DRG 177 ==
LOC: ER 10:23 → TRANSITION 15:35 → TELE1 23:20
PROVIDERS: ADMIT Registered Nurse; ATTEND Nurse Practitioner Acute Care
DX: U07.1 COVID-19 (principal); J12.82 Pneumonia due to coronavirus disease 2019; N17.9 Acute kidney failure, unspecified; D68.59 Other primary thrombophilia; R62.7 Adult failure to thrive; F03.90 Unspecified dementia, unspecified severity, without behavioral disturbance, psychotic disturbance, mood disturbance, and anxiety; I12.9 Hypertensive chronic kidney disease with stage 1 through stage 4 chronic kidney disease, or unspecified chronic kidney disease; N18.30 Chronic kidney disease, stage 3 unspecified; E11.22 Type 2 diabetes mellitus with diabetic chronic kidney disease; R19.7 Diarrhea, unspecified; Z79.84 Long term (current) use of oral hypoglycemic drugs; E11.9 Type 2 diabetes mellitus without complications
CPT/HCPCS: 36415; 71045-TC; 80048-TC; 80061-TC; 80076-TC; 82962-TC; 83605-TC; 83735-TC; 84100-TC; 84443-TC; 84484-TC; 85025-TC; 85730-TC; 87040-TC; 87081-TC; 92526; 92611-TC; 97110-TC; 97112-TC; 97116-TC; 97530-TC; G0378; J1650; J3480; J3490; J7030; U0003